=== PATIENT | male | born 1985 | race Caucasian/White ===

== ENCOUNTER 2022-09-12 23:11 | Emergency (ER) | payer MEDICAID | END 2022-09-13 10:53 | disposition home or self-care (01) | LOC: JD.ED 23:11 | DX: F19.10 Other psychoactive substance abuse, uncomplicated (principal); Z86.16 Personal history of COVID-19; Z72.0 Tobacco use | CPT/HCPCS: 36415; 80053; 80143; 80179; 80306; 80307; 84443; 85025; 93005; 99284 ==

== ENCOUNTER 2022-09-25 18:42 | Emergency (ER) | payer MEDICAID ==
[2022-09-25] MEDS ORDERED: Ondansetron 4 MG Tab.DIS PO ONE (19:16)
[2022-09-25] MEDS ORDERED: Acetaminophen 325 MG Tab PO ONE (19:51)
== END 2022-09-26 02:00 | disposition home or self-care (01) ==
LOC: JD.ED 18:42
DX: R41.82 Altered mental status, unspecified (principal); R51.9 Headache, unspecified
CPT/HCPCS: 36415; 70450; 80053; 80306; 80307; 85025; 99285; A9270

== ENCOUNTER 2022-12-10 07:39 | Emergency (ER) | payer MEDICAID | END 2022-12-10 09:27 | disposition home or self-care (01) | LOC: JD.ED 07:39 | DX: F41.9 Anxiety disorder, unspecified (principal); F19.10 Other psychoactive substance abuse, uncomplicated; Z86.16 Personal history of COVID-19 | CPT/HCPCS: 80306; 81001; 99283 ==